=== PATIENT | female | born 1995 | race Caucasian/White ===

== ENCOUNTER → 2020-09-22 12:53 | Emergency (ER) | payer OTHER ==
[~2020-09-22] VITALS: Ht 167.6 cm; Wt 76.7 kg
[~2020-09-22 12:53] MED LIST: ETHYL CHLORIDE 105 ML SPR TP ONE
[2020-09-22 12:54] VITALS: BP 128/49
--- NOTE | 2020-09-22 13:05 | NUR ---
PT AMB TO BED 11.
--- NOTE | 2020-09-22 13:07 | NUR ---
EZEKIEL RODRIGUEZ AT BEDSIDE EVALUATING PATIENT
--- NOTE | 2020-09-22 13:08 | NUR ---
25 Y/O FEMALE FROM HOME C/O LEFT POINTER FINGER DISCOMFORT X 1 MONTH. PT STATES SHE HAD CACTUS NEEDLE STUCK IN FINGER 1 MONTH AGO AND THINKS THERE IS PART OF THE NEEDLE STUCK. STATES CALLUS NOTED TO TIP OF FINGER. DENIES PAIN. SKIN WARM, DRY, INTACT. VSS MEDHX: DENIES
[2020-09-22 14:11] VITALS: BP 128/49
--- NOTE | 2020-09-22 14:12 | NUR ---
Patient discharged with v/s stable. Written and verbal after care instructions given and explained. Patient verbalized understanding. Ambulatory with steady gait. All questions addressed prior to discharge. Advised to follow up with PMD.
== END | disposition home or self-care (01) ==
LOC: MED 12:53
DX: S60.451A Superficial foreign body of left index finger, initial encounter (principal); X58.XXXA Exposure to other specified factors, initial encounter; Y93.89 Activity, other specified; Y92.89 Other specified places as the place of occurrence of the external cause; Y99.8 Other external cause status
CPT/HCPCS: 10120; 73140; 99284